=== PATIENT | male | born 1960 | race Caucasian/White ===

== ENCOUNTER 2019-06-23 | Emergency (ER) | payer OTHER ==
[~2019-06-23] MED LIST: [UNRECOGNIZED DRUG - REMARK]
[2019-06-23 12:16] LABS: HEMATOCRIT 40.5 % (39.0-50.0); MEAN CORPUSCULAR HGB 23.6 pG CALC (26.0-32.0); MEAN CORPUSCULAR HGB CONC 31.1 g/L CALC (32.0-36.0); NEUT# 14.59 thou/uL (1.82-7.42); RED BLOOD COUNT 5.33 mill/uL (4.70-6.10); RED CELL DISTRI WIDTH 27.9 % (11.5-15.5)
[2019-06-23] MEDS ORDERED: TOPROL XL25 M1 PO (12:21)
[2019-06-23] MEDS ORDERED: BRILINTA90 MG PO (12:21)
[2019-06-23] MEDS ORDERED: LISINOPRIL20 MG PO (12:21)
[2019-06-23] MEDS ORDERED: IRON325 M1 PO (12:22)
[2019-06-23] MEDS ORDERED: VITAMIN B121000 MCG PO (12:22)
[2019-06-23] MEDS ORDERED: EQ ASPIRIN81 M1 PO (12:23)
[2019-06-23 12:26] LABS: ALBUMIN 4.2 g/dL (3.2-5.0); ALKALINE PHOSPHATASE 62 u/l (38-126); BUN 22 mg/dL (9-20); BUN/CREATININE RATIO 27 (12-20 (CALC)); CHLORIDE 100 mmol/l (95-108); CREATININE 0.8 mg/dL (0.7-1.3); GFR > 60 ML/MIN (>=60 (CALC)); GFR FOR AFR.AMER. > 60 ML/MIN (>=60 (CALC)); LIPASE 461 u/l (23-300); POTASSIUM 4.2 mmol/l (3.5-5.1); SGOT/AST 24 u/l (17-59); TOTAL PROTEIN 7.3 g/dL (6.3-8.2)
[2019-06-23 12:32] LABS: ANION GAP 15 (6-22 (CALC)); BILIRUBIN, TOTAL 0.5 mg/dL (0.0-1.4); CARBON DIOXIDE 21 mmol/l (22-30); HEMOGLOBIN 12.6 g/dl (14.0-18.0); SODIUM 132 mmol/l (137-146)
[2019-06-23] MEDS ORDERED: LIPITOR20 M1 PO (12:44)
[2019-06-23 13:41] LABS: URINE BILIRUBIN - DIPSTICK NEGATIVE (NEGATIVE); URINE BLOOD DIPSTICK NEGATIVE (NEGATIVE); URINE COLOR YELLOW; URINE GLUCOSE - DIPSTICK NEGATIVE (NEGATIVE); URINE KETONE NEGATIVE (NEGATIVE); URINE LEUK ESTERASE NEGATIVE (NEGATIVE); URINE NITRITE - DIPSTICK NEGATIVE (Negative); URINE PH 5.5 (4.5-8.0); URINE PROTEIN - DIPSTICK NEGATIVE (NEG-TRACE); URINE SPECIFIC GRAVITY 1.015; URINE UROBILINOGEN - DIPSTICK 0.2 E.U./dL (0.2)
== END 2019-06-23 14:05 | disposition home or self-care (01) | DRG 392 ==
PROVIDERS: Family Medicine
DX: R10.12 Left upper quadrant pain (principal); I10 Essential (primary) hypertension; I25.10 Atherosclerotic heart disease of native coronary artery without angina pectoris; I25.2 Old myocardial infarction; Z95.5 Presence of coronary angioplasty implant and graft
CPT/HCPCS: Q9967